=== PATIENT | female | born 1985 | race Caucasian/White ===

== ENCOUNTER 2018-01-26 06:50 | Inpatient (IN) | payer BC, MEDICAID ==
[2018-01-26] MEDS ORDERED: Misoprostol 50 MCG (1/2 of 100 MCG) Tab VAG ONE (07:20)
[2018-01-26] MEDS ORDERED: Misoprostol 50 MCG (1/2 of 100 MCG) Tab ONE (07:29)
[2018-01-26] MEDS ORDERED: Acetaminophen 325 MG Tab PO PRN (07:35)
[2018-01-26] MEDS ORDERED: Sodium Chloride 0.9% 10 ML Syringe FLUSH PRN (07:35)
[2018-01-26] MEDS ORDERED: Ondansetron 4 MG Tab.DIS PO PRN (07:35)
[2018-01-26] MEDS ORDERED: fentaNYL 100 MCG/2 ML SDV IVPUSH PRN (07:35)
[2018-01-26] MEDS ORDERED: Lactated Ringers 1,000 ML IV ONE (07:39)
[2018-01-26] MEDS ORDERED: ePHEDrine 50 MG/ML SDV IVPUSH ONE (07:39)
--- NOTE | 2018-01-26 07:48 | PCM.LDHP ---
L&D History of Present Illness - General Date of Service: 01/26/18 (induction) Admit Problem/Dx: Patient Status Order with Admit Dx/Problem 01/26/18 07:36 Patient Status [ADT] Routine Admission Diagnosis/Problem Admission Diagnosis/Problem and not yet delivered Source of Information: Patient History Limitations: Reports: No Limitations - History of Present Illness Timing/Duration: Reports: minutes: (3) Severity: Mild Improves with: Reports: None Worsens with: Reports: None - Related Data Allergies/Adverse Reactions: Allergies Allergy/AdvReac Type Severity Reaction Status Date / Time No Known Allergies Allergy Verified 01/26/18 07:28 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 : 4 Para: 3 LMP (Approximate): H&P Review of Systems - Review of Systems: Review Of Systems: See Below General: Reports: No Symptoms HEENT: Reports: No Symptoms Pulmonary: Reports: No Symptoms Cardiovascular: Reports: No Symptoms Gastrointestinal: Reports: No Symptoms Genitourinary: Reports: No Symptoms Musculoskeletal: Reports: No Symptoms Skin: Reports: No Symptoms Psychiatric: Reports: No Symptoms Neurological: Reports: No Symptoms Hematologic/Lymphatic: Reports: No Symptoms Immunologic: Reports: No Symptoms L&D Exam - Exam Exam: See Below - Vital Signs Vital Signs: Last Vital Signs Temp 96.6 F 01/26/18 07:00 Pulse 98 01/26/18 07:00 Resp 16 01/26/18 07:00 BP 121/72 01/26/18 07:00 Pulse Ox 97 01/26/18 07:00 - OB Specific Contraction Intensity: Mild Movement: Active Heart Tones: Present Heart Tones per Min: 145 Heart Rate (FHR) Variability: Moderate (6-25 bmp) Presentation: Vertex Estimated Weight: 7 pounds - Ivey Score Ivey Score Cervix Position: Anterior Ivey Score Consistency: Soft Ivey Score Effacement: 51-70% Ivey Score Dilation: 3-4 cm Ivey Score 's Station: -1 ,0 Ivey Score Total: 10 - Exam General: Alert, Oriented HEENT: PERRLA, Mucosa Moist & [place], Posterior Pharynx Clear Neck: Supple Lungs: Clear to Auscultation, Normal Respiratory Effort Cardiovascular: Regular Rate, Regular Rhythm GI/Abdominal Exam: Soft, Non-Tender Rectal Exam: Normal Exam Genitourinary: Normal external exam, Cervical discharge, Enlarged uterus Back Exam: Normal Inspection Extremities: Normal Inspection, No Pedal Edema Skin: Warm, Dry, Intact Neurological: Cranial Nerves Intact Psychiatric: Alert, Normal Affect, Normal Mood - Patient Data Lab Results Last 24 hrs: Laboratory Results - last 24 hr 01/26/18 Range/Units 07:16 WBC 9.2 (4.5-11.0) K/uL RBC 3.38 (3.30-5.50) M/uL Hgb 10.5 L (12.0-15.0) g/dL Hct 31.8 L (36.0-48.0) % MCV 94 (80-98) fL MCH 31 (27-31) pg MCHC 33 (32-36) % Plt Count 183 (150-400) K/uL Neut % (Auto) 69 H (36-66) % Lymph % (Auto) 21 L (24-44) % [place] % (Auto) 8 H (2-6) % Eos % (Auto) 2 (2-4) % Baso % (Auto) 0 (0-1) % Result Diagrams: 01/26/18 07:16 - Problem List (1) Encounter for planned induction of labor SNOMED Code(s): 761236423 ICD Code: Z34.90 - ENCNTR FOR SUPRVSN OF NORMAL , UNSP, UNSP TRIMESTER Status: Acute Current Visit: Yes (2) SNOMED Code(s): 50464872 ICD Code: Z34.90 - ENCNTR FOR SUPRVSN OF NORMAL , UNSP, UNSP TRIMESTER Status: Acute Current Visit: Yes Qualifiers: Weeks of gestation: 39 weeks Qualified Code(s): Z3A.39 - 39 weeks gestation of Problem List Initiated/Reviewed/Updated: Yes Orders Last 24hrs: Active Orders 24 hr Category Date Time Status Patient Status [ADT] Routine ADT 01/26/18 07:36 Ordered Antiembolic Devices [RC] .Routine Care 01/26/18 07:39 Ordered Communication Order [RC] ASDIRECTED Care 01/26/18 07:36 Ordered Heart Tones [RC] PER UNIT ROUTINE Care 01/26/18 07:36 Ordered Non Stress Test [RC] Click to Edit Care 01/26/18 07:36 Ordered Insert Urinary Catheter [OM.PC] ASDIRECTED Care 01/26/18 07:45 Ordered Local Anesthetic Infusion Pump [RC] ASDIRECTED Care 01/26/18 07:39 Ordered May Shower [RC] ASDIRECTED Care 01/26/18 07:35 Ordered Notify Provider Vital Signs [RC] PRN Care 01/26/18 07:35 Ordered Notify Provider [RC] PRN Care 01/26/18 07:36 Ordered OB Check [OM.PC] Click to Edit Care 01/26/18 07:18 Ordered PCEA Epidural [RC] ASDIRECTED Care 01/26/18 07:39 Ordered PCEA Epidural [RC] ASDIRECTED Care 01/26/18 07:39 Ordered Urinary Catheter Assessment [RC] ASDIRECTED Care 01/26/18 07:39 Ordered VTE/DVT Education [RC] Click to Edit Care 01/26/18 07:39 Ordered Vital Signs [RC] PER UNIT ROUTINE Care 01/26/18 07:36 Ordered Regular Diet [DIET] Diet 01/26/18 Breakfast Ordered DRUG SCREEN, URINE [URCHEM] Routine Lab 01/26/18 07:10 Ordered UA W/MICROSCOPIC [URIN] Routine Lab 01/26/18 07:09 Ordered Acetaminophen [Tylenol] Med 01/26/18 07:35 Ordered 650 mg PO Q4H PRN Lactated Ringers [Ringers, Lactated] 1,000 ml Med 01/26/18 07:39 Ordered IV .BOLUS Ondansetron [Zofran ODT] Med 01/26/18 07:35 Ordered 4 mg PO Q4H PRN Oxytocin/Normal Saline [Pitocin in NS 20 Units/1,000 ML Med 01/26/18 07:40 Ordered ] 20 unit in 1,000 ml IV ONETIME Sodium Chloride 0.9% [Saline Flush] Med 01/26/18 07:35 Ordered 10 ml FLUSH ASDIRECTED PRN ePHEDrine [ePHEDrine Sulfate] Med 01/26/18 07:39 Once 5 mg IVPUSH ONETIME ONE fentaNYL [Sublimaze] Med 01/26/18 07:35 Ordered 100 mcg IVPUSH Q1H PRN DVT/VTE Prophylaxis Reflex [OM.PC] Routine Oth 01/26/18 07:35 Ordered Epidural Catheter Management [OM.PC] Urgent Oth 01/26/18 07:39 Ordered Saline Lock Insert [OM.PC] Routine Oth 01/26/18 07:36 Ordered Resuscitation Status Routine Resus Stat 01/26/18 07:35 Ordered Medication Orders Acetaminophen (Tylenol) 650 mg PO Q4H PRN PRN Reason: Pain (Mild 1-3) and fever Ephedrine Sulfate (Ephedrine Sulfate) 5 mg IVPUSH ONETIME ONE Stop: 01/26/18 07:40 Fentanyl (Sublimaze) 100 mcg IVPUSH Q1H PRN PRN Reason: Pain (moderate 4-6) Lactated Ringer's (Ringers, Lactated) 1,000 mls @ 999 mls/hr IV .BOLUS ONE Stop: 01/26/18 08:39 Oxytocin/Sodium Chloride (Pitocin In Ns 20 Units/1,000 Ml) 20 unit in 1,000 mls @ 999 mls/hr IV ONETIME ONE; Protocol Stop: 01/26/18 08:40 Ondansetron HCl (Zofran Odt) 4 mg PO Q4H PRN PRN Reason: Nausea/Vomiting Sodium Chloride (Saline Flush) 10 ml FLUSH ASDIRECTED PRN PRN Reason: Keep Vein Open Assessment/Plan Comment:: 01/26/18 This 32 year old presents today for induction of labor. She has been marifer but has been comfortable. Has severe back pain which has gotten worse during her . LILLIE 02/01/18. Has had adequate care Labs ABO AB pos Rubella immune GBS neg HIV neg Would like an epidural for pain later today. Plan: Misoprostol for induction 50 MCG palced vaginally at 0730 CE 3/75/0 vertex Cat one strip Plan for vaginal delivery
--- NOTE | 2018-01-26 12:53 | PCM.PNLD ---
Labor Progress Note - VS & Meds Vital Signs: Last Vital Signs Temp 97.5 F 01/26/18 11:55 Pulse 84 01/26/18 11:55 Resp 16 01/26/18 08:30 BP 107/55 L 01/26/18 11:55 Pulse Ox 97 01/26/18 11:55 Active Medications: Current Medications Acetaminophen (Tylenol) 650 mg PO Q4H PRN PRN Reason: Pain (Mild 1-3) and fever Fentanyl (Sublimaze) 100 mcg IVPUSH Q1H PRN PRN Reason: Pain (moderate 4-6) Oxytocin/Sodium Chloride (Pitocin In Ns 20 Units/1,000 Ml) 20 unit in 1,000 mls @ 999 mls/hr IV ASDIRECTED TREY; Protocol Ondansetron HCl (Zofran Odt) 4 mg PO Q4H PRN PRN Reason: Nausea/Vomiting Sodium Chloride (Saline Flush) 10 ml FLUSH ASDIRECTED PRN PRN Reason: Keep Vein Open Discontinued Medications Ephedrine Sulfate (Ephedrine Sulfate) 5 mg IVPUSH ONETIME ONE Stop: 01/26/18 07:40 Lactated Ringer's (Ringers, Lactated) 1,000 mls @ 999 mls/hr IV .BOLUS ONE Stop: 01/26/18 08:39 Misoprostol (Cytotec) 50 mcg VAG ONETIME ONE Stop: 01/26/18 07:21 Last Admin: 01/26/18 07:31 Dose: 50 mcg Misoprostol (Cytotec) Confirm Administered Dose 50 mcg .ROUTE .STK-MED ONE Stop: 01/26/18 07:30 Last Admin: 01/26/18 07:59 Dose: Not Given - Uterine Contractions Uterine Monitoring Mode: External Maish Vaya Contraction Frequency (min): 2-2.5 Contraction Duration (sec): 50-130 Contraction Intensity: Mild Uterine Resting Tone: Soft - Monitoring Monitor Mode: Doppler/Auscultation Heart Rate (FHR) Baseline: 140 Heart Rate (FHR) Variability: Moderate (6-25 bmp) Accelerations: Present, 15x15 Decelerations: None Strip Review: Category I - Vaginal Exam Dilation (cm): 4 Effacement (Percent): 80 Station: 0 Cervical Position: Anterior Sterile Vaginal Exam Performed By: [facility] Vaginal Exam Comment: AROM clear - Labor Progress (Free Text) Labor Progress: 01/26/18 Nice change since this morning, marifer regularly, AROM, large amount clear fluid CE 4-/0 Cat one strip Cristal would like an epidural for pain control Planning vaginal delivery
[2018-01-26] MEDS ORDERED: ePHEDrine 50 MG/ML SDV ONE (13:10)
[2018-01-26] MEDS ORDERED: Naloxone 0.4 MG/ML SDV IVPUSH PRN (13:56)
[2018-01-26] MEDS ORDERED: ePHEDrine 50 MG/ML SDV IV PRN (13:56)
[2018-01-26] MEDS ORDERED: Ropivacaine 100 ML EPIDUR SCH (13:56)
[2018-01-26] MEDS ORDERED: Ropivacaine 100 ML ONE (13:57)
[2018-01-26] MEDS ORDERED: Lanolin 100% Cream 40 GM Tube TOP PRN (15:01)
[2018-01-26] MEDS ORDERED: Ibuprofen 200 MG Tab, 24 Tab Bulk Bottle PO PRN (15:01)
[2018-01-26] MEDS ORDERED: Acetaminophen 325 MG Tab, 50 Tab Bulk Bottle PO PRN (15:01)
--- NOTE | 2018-01-26 15:11 | PCM.DEL ---
L & D Note - General Info Date of Service: 01/26/18 (Childbirth) Mother's Due Date: 01/26/18 - Delivery Note Labor: Spontaneous Cervical Ripening Method: Misoprostil Delivery Outcome: Livebirth Delivery Method: Spontaneous Vaginal Delivery-Single Infant Delivery Mode: Spontaneous Presentation: Vertex Nuchal Cord: None Anesthesia Type: Epidural Episiotomy Type: None Laceration: None Placenta: Intact, Expressed Cord: 3 Vessels Estimated Blood Loss: 50 Resuscitation Needed: No [place]: Stimulated, [place] Used Provider: Loreto [facility] Score 1 min: 9 Score 5 min: 9 Second Stage Interventions: Reports: Encouragement Given, Pushing Effectively Delivery Comments (Free Text/Narrative):: This 32 year old who is 39 1/7 weeks delivered via at 1441 at 1441 a viable male infant over an intact perineum in GRADY position. There was a short cord so baby was delivered into my arms the cord was double clamped and cut and placed on mother's abdomen. He cried spontaneously. He was dried and stimulated. Apgars 9, 9. Three vessel cord. Baby was placed skin to skin with mother. The placenta was expressed with massage and was intact reed. Active management of the third stage was used. EBL 50cc No lacerations of the cervix, vagina, rectum or perineum were found. Mother and baby to post and nusery in stable condition. weight 7-14 Induction Criteria - Ivey Score Ivey Score Dilation: 3-4 cm Ivey Score Effacement: 60-70% Ivey Score 's Station: -1 ,0 Ivey Score Consistency: Soft Ivey Score Cervix Position: Anterior Ivey Score Total: 10 Ivey Score Presenting Part: Reports: Cephalic - Induction Gestational Age >/= 39 wks: Yes Estimated Pelvis: Reports: Adequate Reassuring Monitoring Strip: Yes Absence of Tachy Systole: Yes - General Info Date of Service: 01/26/18 Admission Dx/Problem (Free Text): Patient Status Order with Admit Dx/Problem 01/26/18 07:36 Patient Status [ADT] Routine Admission Diagnosis/Problem Admission Diagnosis/Problem and not yet delivered Functional Status: Reports: Pain Controlled - Review of Systems General: Reports: No Symptoms HEENT: Reports: No Symptoms Pulmonary: Reports: No Symptoms Cardiovascular: Reports: No Symptoms Gastrointestinal: Reports: No Symptoms Genitourinary: Reports: No Symptoms Musculoskeletal: Reports: No Symptoms Skin: Reports: No Symptoms Neurological: Reports: No Symptoms Psychiatric: Reports: No Symptoms - Patient Data Vitals - Most Recent: Last Vital Signs Temp 97.5 F 01/26/18 11:55 Pulse 91 01/26/18 14:00 Resp 16 01/26/18 08:30 BP 118/72 01/26/18 14:00 Pulse Ox 98 01/26/18 14:00 Weight - Most Recent: 190 lb 0.016 oz Lab Results Last 24 Hours: Laboratory Results - last 24 hr 01/26/18 01/26/18 01/26/18 Range/Units 07:09 07:10 07:16 WBC 9.2 (4.5-11.0) K/uL RBC 3.38 (3.30-5.50) M/uL Hgb 10.5 L (12.0-15.0) g/dL Hct 31.8 L (36.0-48.0) % MCV 94 (80-98) fL MCH 31 (27-31) pg MCHC 33 (32-36) % Plt Count 183 (150-400) K/uL Neut % (Auto) 69 H (36-66) % Lymph % (Auto) 21 L (24-44) % [place] % (Auto) 8 H (2-6) % Eos % (Auto) 2 (2-4) % Baso % (Auto) 0 (0-1) % Urine Color Yellow Urine Appearance Cloudy Urine pH 7.0 (4.5-8.0) Ur Specific [place] 1.015 (1.008-1.030) Urine Protein Negative (NEGATIVE) mg/dL Urine Glucose (UA) Normal (NEGATIVE) mg/dL Urine Ketones Negative (NEGATIVE) mg/dL Urine Occult Blood Moderate (NEGATIVE) Urine Nitrite Negative (NEGATIVE) Urine Bilirubin Negative (NEGATIVE) Urine Urobilinogen Normal (NORMAL) mg/dL Ur Leukocyte Esterase Large (NEGATIVE) Urine RBC 0-5 (0-5) Urine WBC 10-20 H (0-5) Ur Epithelial Cells Many Amorphous Sediment Moderate Urine Bacteria Many Urine Mucus Moderate Urine Other See note Urine Opiates Screen Negative (NEGATIVE) Ur Oxycodone Screen Negative (NEGATIVE) Urine Methadone Screen Negative (NEGATIVE) Ur Propoxyphene Screen Negative (NEGATIVE) Ur Barbiturates Screen Negative (NEGATIVE) Ur Tricyclics Screen Negative (NEGATIVE) Ur Phencyclidine Scrn Negative (NEGATIVE) Ur Amphetamine Screen Negative (NEGATIVE) U Methamphetamines Scrn Negative (NEGATIVE) Urine MDMA Screen Negative (NEGATIVE) U Benzodiazepines Scrn Negative (NEGATIVE) U Cocaine Metab Screen Negative (NEGATIVE) U Marijuana (THC) Screen Negative (NEGATIVE) Med Orders - Current: Current Medications Acetaminophen (Tylenol) 650 mg PO Q4H PRN PRN Reason: Pain (Mild 1-3) and fever Ephedrine Sulfate (Ephedrine Sulfate) 5 - 10 mg IV ASDIRECTED PRN PRN Reason: Systolic BP less than 100 Fentanyl (Sublimaze) 100 mcg IVPUSH Q1H PRN PRN Reason: Pain (moderate 4-6) Oxytocin/Sodium Chloride (Pitocin In Ns 20 Units/1,000 Ml) 20 unit in 1,000 mls @ 999 mls/hr IV ASDIRECTED TREY; Protocol Ropivacaine (Naropin 0.2%) 100 mls @ 0 mls/hr EPIDUR ASDIRECTED TREY; Protocol Naloxone HCl (Narcan) 0.1 mg IVPUSH Q5M PRN PRN Reason: IF RESP RATE LESS THAN 6 Ondansetron HCl (Zofran Odt) 4 mg PO Q4H PRN PRN Reason: Nausea/Vomiting Sodium Chloride (Saline Flush) 10 ml FLUSH ASDIRECTED PRN PRN Reason: Keep Vein Open Discontinued Medications Ephedrine Sulfate (Ephedrine Sulfate) 5 mg IVPUSH ONETIME ONE Stop: 01/26/18 07:40 Ephedrine Sulfate (Ephedrine Sulfate) Confirm Administered Dose 50 mg .ROUTE .STK-MED ONE Stop: 01/26/18 13:11 Lactated Ringer's (Ringers, Lactated) 1,000 mls @ 999 mls/hr IV .BOLUS ONE Stop: 01/26/18 08:39 Last Admin: 01/26/18 12:56 Dose: 999 mls/hr Ropivacaine (Naropin 0.2%) Confirm Administered Dose 100 mls @ as directed .ROUTE .STK-MED ONE Stop: 01/26/18 13:58 Misoprostol (Cytotec) 50 mcg VAG ONETIME ONE Stop: 01/26/18 07:21 Last Admin: 01/26/18 07:31 Dose: 50 mcg Misoprostol (Cytotec) Confirm Administered Dose 50 mcg .ROUTE .STK-MED ONE Stop: 01/26/18 07:30 Last Admin: 01/26/18 07:59 Dose: Not Given - Exam General: Alert, Oriented HEENT: Pupils Equal, Pupils Reactive, Mucous Membr. Moist/[place] Neck: Supple Lungs: Clear to Auscultation, Normal Respiratory Effort Cardiovascular: Regular Rate, Regular Rhythm GI/Abdominal Exam: Soft, Non-Tender (Female) Exam: Cervical Dilatation, Enlarged Uterus, Vaginal Bleeding, Other (right labial varicosities) Back Exam: Normal Inspection, Full Range of Motion Extremities: Normal Inspection, No Pedal Edema, Normal Capillary Refill Skin: Warm, Dry Neurological: No New Focal Deficit Psy/Mental Status: Alert, Normal Affect, Normal Mood - Problem List & Annotations (1) Encounter for planned induction of labor SNOMED Code(s): 279732319 Code(s): Z34.90 - ENCNTR FOR SUPRVSN OF NORMAL , UNSP, UNSP TRIMESTER Status: Acute Current Visit: Yes (2) SNOMED Code(s): 10306215 Code(s): Z34.90 - ENCNTR FOR SUPRVSN OF NORMAL , UNSP, UNSP TRIMESTER Status: Acute Current Visit: Yes Qualifiers: Weeks of gestation: 39 weeks Qualified Code(s): Z3A.39 - 39 weeks gestation of (3) Normal labor and delivery SNOMED Code(s): 11062681, 059280031 Code(s): O80 - ENCOUNTER FOR FULL-TERM UNCOMPLICATED DELIVERY Status: Acute Current Visit: Yes - Problem List Review Problem List Initiated/Reviewed/Updated: Yes - My Orders Last 24 Hours: My Active Orders 01/26/18 07:18 OB Check [OM.PC] Click to Edit 01/26/18 07:35 May Shower [RC] ASDIRECTED Notify Provider Vital Signs [RC] PRN Acetaminophen [Tylenol] 650 mg PO Q4H PRN Ondansetron [Zofran ODT] 4 mg PO Q4H PRN Sodium Chloride 0.9% [Saline Flush] 10 ml FLUSH ASDIRECTED PRN fentaNYL [Sublimaze] 100 mcg IVPUSH Q1H PRN DVT/VTE Prophylaxis Reflex [OM.PC] Routine Resuscitation Status Routine 01/26/18 07:36 Patient Status [ADT] Routine Communication Order [RC] ASDIRECTED Notify Provider [RC] PRN Vital Signs [RC] PER UNIT ROUTINE Saline Lock Insert [OM.PC] Routine 01/26/18 07:39 Antiembolic Devices [RC] .Routine Local Anesthetic Infusion Pump [RC] ASDIRECTED PCEA Epidural [RC] ASDIRECTED Urinary Catheter Assessment [RC] ASDIRECTED VTE/DVT Education [RC] Click to Edit Epidural Catheter Management [OM.PC] Urgent 01/26/18 07:40 Oxytocin/Normal Saline [Pitocin in NS 20 Units/1,000 ML] 20 unit in 1,000 ml IV ASDIRECTED 01/26/18 07:45 Insert Urinary Catheter [OM.PC] ASDIRECTED 01/26/18 15:01 Patient Status [ADT] Routine Urinary Catheter Removal [RC] Per Unit Routine Vital Signs [RC] PFP Acetaminophen [Tylenol Bulk Bottle] 325 mg PO Q4H PRN Ibuprofen [Motrin Bulk Bottle] 600 mg PO Q6H PRN Lanolin [Lansinoh HPA] 1 gm TOP ASDIRECTED PRN Assess Uterine Involution [WOMSER] Per Unit Routine 01/26/18 15:02 Ice Therapy [OM.PC] Per Unit Routine Perineal Care [OM.PC] Per Unit Routine Peripheral IV Discontinue [OM.PC] Routine Sitz Bath [OM.PC] Per Unit Routine 01/26/18 Breakfast Regular Diet [DIET] 01/27/18 05:11 CBC WITH AUTO DIFF [HEME] AM - Assessment Assessment:: 01/26/18 32 yr old without complications Breast feeding , male - Plan Plan:: 01/26/18 This 32 year old presents today for induction of labor. She has been marifer but has been comfortable. Has severe back pain which has gotten worse during her . LILLIE 02/01/18. Has had adequate care Labs ABO AB pos Rubella immune GBS neg HIV neg Would like an epidural for pain later today. Plan: Misoprostol for induction 50 MCG palced vaginally at 0730 CE 3/75/0 vertex Cat one strip Plan for vaginal delivery 01/26/18 Routine cares support CBC in am 24-48 hour stay
--- NOTE | 2018-01-27 00:37 | ANES ---
DATE OF SERVICE: 01/26/2018 INDICATIONS: Today, she is in Obstetrics Unit in a prolonged stage II labor. She is a 32- year-old female patient of Maddie V[facility]. I was consulted for labor epidural. Upon arrival, I discussed with the patient her history, reviewed her lab work. I found no contraindication to labor epidural, as she was well aware of the risks and benefits of the procedure and okay to proceed and consent was received. DESCRIPTION OF PROCEDURE: I had her seated at the edge of the bed. Betadine prep x3 to lumbar region. Sterile drape was placed. A 1% lidocaine skin wheal as well as deep at what I believe to be the L3-L4 region which is between two sides of the tattoo, sterile drape was placed, 1% lidocaine skin wheal as well as deep. A 17-gauge Touhy needle was placed to loss of resistance, negative CSF, negative heme, negative paresthesia. I injected a mixture of 12 mL of 0.2% ropivacaine after the catheter was inserted to 13 cm. The catheter was then secured negative sequelae. A test dose was given prior to the 12 mL, 3 mL of 1.5% lidocaine with 1:200,000 epinephrine, and then the 12 mL of 0.2% ropivacaine was given. The catheter was then secured to her back and connected to an IV infusion pump of that same 12 mL of 0.2% ropivacaine in an hour. She tolerated the procedure quite well. I placed her in a supine position. I discussed with her the procedure. She said she tolerated quite well. Please refer to nursing notes for vital signs and neuro status, which were unchanged. I reported off to the nurse in the room. Rl Naqvi CRNA /[id number]
--- NOTE | 2018-01-27 11:09 | PCM.PNPP ---
- General Info Date of Service: 01/27/18 Admission Dx/Problem (Free Text): Patient Status Order with Admit Dx/Problem 01/26/18 07:36 Patient Status [ADT] Routine Admission Diagnosis/Problem Admission Diagnosis/Problem and not yet delivered Functional Status: Reports: Pain Controlled - Review of Systems General: Reports: No Symptoms HEENT: Reports: No Symptoms Pulmonary: Reports: No Symptoms Cardiovascular: Reports: No Symptoms Gastrointestinal: Reports: No Symptoms Genitourinary: Reports: No Symptoms Musculoskeletal: Reports: No Symptoms Skin: Reports: No Symptoms Neurological: Reports: No Symptoms Psychiatric: Reports: No Symptoms - Patient Data Vital Signs - Most Recent: Last Vital Signs Temp 97.1 F 01/27/18 07:00 Pulse 75 01/27/18 07:00 Resp 16 01/27/18 07:00 BP 108/60 01/27/18 07:00 Pulse Ox 98 01/27/18 07:00 Weight - Most Recent: 190 lb 0.016 oz I&O - Last 24 Hours: Intake & Output 01/26/18 01/27/18 01/27/18 22:59 06:59 14:59 Intake Total 480 Balance 480 Lab Results - Last 24 Hours: Laboratory Results - last 24 hr 01/27/18 Range/Units 05:26 WBC 13.0 H (4.5-11.0) K/uL RBC 3.32 (3.30-5.50) M/uL Hgb 10.0 L (12.0-15.0) g/dL Hct 31.5 L (36.0-48.0) % MCV 95 (80-98) fL MCH 30 (27-31) pg MCHC 32 (32-36) % Plt Count 169 (150-400) K/uL Neut % (Auto) 69 H (36-66) % Lymph % (Auto) 22 L (24-44) % [place] % (Auto) 7 H (2-6) % Eos % (Auto) 2 (2-4) % Baso % (Auto) 0 (0-1) % Med Orders - Current: Current Medications Acetaminophen (Tylenol Bulk Bottle) 325 - 650 mg PO Q4H PRN PRN Reason: Pain Last Admin: 01/26/18 16:08 Dose: 650 mg Emollient Ointment (Lansinoh Hpa) 0 gm TOP ASDIRECTED PRN PRN Reason: Sore Nipples Last Admin: 01/26/18 16:07 Dose: 1 applic Ibuprofen (Motrin Bulk Bottle) 600 mg PO Q6H PRN PRN Reason: Pain Last Admin: 01/26/18 16:08 Dose: 600 mg Ondansetron HCl (Zofran Odt) 4 mg PO Q4H PRN PRN Reason: Nausea/Vomiting Sodium Chloride (Saline Flush) 10 ml FLUSH ASDIRECTED PRN PRN Reason: Keep Vein Open Discontinued Medications Acetaminophen (Tylenol) 650 mg PO Q4H PRN PRN Reason: Pain (Mild 1-3) and fever Ephedrine Sulfate (Ephedrine Sulfate) 5 mg IVPUSH ONETIME ONE Stop: 01/26/18 07:40 Last Admin: 01/26/18 16:04 Dose: Not Given Ephedrine Sulfate (Ephedrine Sulfate) Confirm Administered Dose 50 mg .ROUTE .STK-MED ONE Stop: 01/26/18 13:11 Last Admin: 01/26/18 16:04 Dose: Not Given Ephedrine Sulfate (Ephedrine Sulfate) 5 - 10 mg IV ASDIRECTED PRN PRN Reason: Systolic BP less than 100 Fentanyl (Sublimaze) 100 mcg IVPUSH Q1H PRN PRN Reason: Pain (moderate 4-6) Lactated Ringer's (Ringers, Lactated) 1,000 mls @ 999 mls/hr IV .BOLUS ONE Stop: 01/26/18 08:39 Last Admin: 01/26/18 12:56 Dose: 999 mls/hr Oxytocin/Sodium Chloride (Pitocin In Ns 20 Units/1,000 Ml) 20 unit in 1,000 mls @ 999 mls/hr IV ASDIRECTED TREY; Protocol Last Titration: 01/26/18 15:15 Dose: 125 mls/hr Ropivacaine (Naropin 0.2%) 100 mls @ 0 mls/hr EPIDUR ASDIRECTED TREY; Protocol Ropivacaine (Naropin 0.2%) Confirm Administered Dose 100 mls @ as directed .ROUTE .STK-MED ONE Stop: 01/26/18 13:58 Misoprostol (Cytotec) 50 mcg VAG ONETIME ONE Stop: 01/26/18 07:21 Last Admin: 01/26/18 07:31 Dose: 50 mcg Misoprostol (Cytotec) Confirm Administered Dose 50 mcg .ROUTE .STK-MED ONE Stop: 01/26/18 07:30 Last Admin: 01/26/18 07:59 Dose: Not Given Naloxone HCl (Narcan) 0.1 mg IVPUSH Q5M PRN PRN Reason: IF RESP RATE LESS THAN 6 - Infant Interaction Disposition, : in Room with Family Interaction: Holding Infant Feeding: Breastfed ; Nursed Well, Encouraged to Breastfeed Support Person: - Recovery Exam Fundal Tone: Firms with Massage Fundal Level: At Umbilicus Lochia Amount: Moderate Lochia Color: Rubra/Red Perineum Description: Edematous Episiotomy/Laceration: None Bladder Status: Voiding Urinary Elimination: Voided - Exam General: Alert, Oriented HEENT: Pupils Equal Neck: Supple Lungs: Clear to Auscultation, Normal Respiratory Effort Cardiovascular: Regular Rate, Regular Rhythm GI/Abdominal Exam: Normal Bowel Sounds, Soft, Non-Tender, No Organomegaly, No Distention, No Abnormal Bruit, No Mass, Pelvis Stable Extremities: Normal Inspection, Normal Range of Motion, Non-Tender, No Pedal Edema, Normal Capillary Refill Skin: Warm, Dry, Intact Wound/Incisions: Healing Well Neurological: No New Focal Deficit Psy/Mental Status: Alert, Normal Affect, Normal Mood - Problem List & Annotations (1) Encounter for planned induction of labor SNOMED Code(s): 384214863 Code(s): Z34.90 - ENCNTR FOR SUPRVSN OF NORMAL , UNSP, UNSP TRIMESTER Status: Acute Current Visit: Yes (2) SNOMED Code(s): 29612845 Code(s): Z34.90 - ENCNTR FOR SUPRVSN OF NORMAL , UNSP, UNSP TRIMESTER Status: Acute Current Visit: Yes Qualifiers: Weeks of gestation: 39 weeks Qualified Code(s): Z3A.39 - 39 weeks gestation of (3) Normal labor and delivery SNOMED Code(s): 91816816, 774246022 Code(s): O80 - ENCOUNTER FOR FULL-TERM UNCOMPLICATED DELIVERY Status: Acute Current Visit: Yes - Problem List Review Problem List Initiated/Reviewed/Updated: Yes - My Orders Last 24 Hours: My Active Orders 01/26/18 15:01 Patient Status [ADT] Routine Acetaminophen [Tylenol Bulk Bottle] 325 - 650 mg PO Q4H PRN Ibuprofen [Motrin Bulk Bottle] 600 mg PO Q6H PRN Lanolin [Lansinoh HPA] 0 gm TOP ASDIRECTED PRN Assess Uterine Involution [WOMSER] Per Unit Routine 01/26/18 15:02 Ice Therapy [OM.PC] Per Unit Routine Perineal Care [OM.PC] Per Unit Routine Peripheral IV Discontinue [OM.PC] Routine Sitz Bath [OM.PC] Per Unit Routine - Assessment Assessment:: 01/26/18 32 yr old without complications Breast feeding , male 01/27/18 Happy, without problem Flow light and ramping is mild HGB 10 voiding - Plan Plan:: 01/26/18 This 32 year old presents today for induction of labor. She has been marifer but has been comfortable. Has severe back pain which has gotten worse during her . LILLIE 02/01/18. Has had adequate care Labs ABO AB pos Rubella immune GBS neg HIV neg Would like an epidural for pain later today. Plan: Misoprostol for induction 50 MCG palced vaginally at 0730 CE /0 vertex Cat one strip Plan for vaginal delivery 01/26/18 Routine cares support CBC in am 24-48 hour stay 01/27/18 Continue routine cares Home tomorrow Support
--- NOTE | 2018-01-28 10:10 | PCM.PNPP ---
- General Info Date of Service: 01/28/18 (PPD 2 D/C) Admission Dx/Problem (Free Text): Patient Status Order with Admit Dx/Problem 01/26/18 07:36 Patient Status [ADT] Routine Admission Diagnosis/Problem Admission Diagnosis/Problem and not yet delivered Functional Status: Reports: Pain Controlled - Review of Systems General: Reports: No Symptoms HEENT: Reports: No Symptoms Pulmonary: Reports: No Symptoms Cardiovascular: Reports: No Symptoms Gastrointestinal: Reports: No Symptoms Genitourinary: Reports: No Symptoms Musculoskeletal: Reports: No Symptoms Skin: Reports: No Symptoms Neurological: Reports: No Symptoms Psychiatric: Reports: No Symptoms - Patient Data Vital Signs - Most Recent: Last Vital Signs Temp 97.6 F 01/28/18 07:45 Pulse 86 01/28/18 07:45 Resp 16 01/28/18 07:45 BP 111/61 01/28/18 07:45 Pulse Ox 99 01/28/18 07:45 Weight - Most Recent: 190 lb 0.016 oz I&O - Last 24 Hours: Intake & Output 01/27/18 01/28/18 01/28/18 22:59 06:59 14:59 Intake Total 1000 800 Balance 1000 800 Med Orders - Current: Current Medications Acetaminophen (Tylenol Bulk Bottle) 325 - 650 mg PO Q4H PRN PRN Reason: Pain Last Admin: 01/26/18 16:08 Dose: 650 mg Emollient Ointment (Lansinoh Hpa) 0 gm TOP ASDIRECTED PRN PRN Reason: Sore Nipples Last Admin: 01/26/18 16:07 Dose: 1 applic Ibuprofen (Motrin Bulk Bottle) 600 mg PO Q6H PRN PRN Reason: Pain Last Admin: 01/26/18 16:08 Dose: 600 mg Ondansetron HCl (Zofran Odt) 4 mg PO Q4H PRN PRN Reason: Nausea/Vomiting Sodium Chloride (Saline Flush) 10 ml FLUSH ASDIRECTED PRN PRN Reason: Keep Vein Open Discontinued Medications Acetaminophen (Tylenol) 650 mg PO Q4H PRN PRN Reason: Pain (Mild 1-3) and fever Ephedrine Sulfate (Ephedrine Sulfate) 5 mg IVPUSH ONETIME ONE Stop: 01/26/18 07:40 Last Admin: 01/26/18 16:04 Dose: Not Given Ephedrine Sulfate (Ephedrine Sulfate) Confirm Administered Dose 50 mg .ROUTE .STK-MED ONE Stop: 01/26/18 13:11 Last Admin: 01/26/18 16:04 Dose: Not Given Ephedrine Sulfate (Ephedrine Sulfate) 5 - 10 mg IV ASDIRECTED PRN PRN Reason: Systolic BP less than 100 Fentanyl (Sublimaze) 100 mcg IVPUSH Q1H PRN PRN Reason: Pain (moderate 4-6) Lactated Ringer's (Ringers, Lactated) 1,000 mls @ 999 mls/hr IV .BOLUS ONE Stop: 01/26/18 08:39 Last Admin: 01/26/18 12:56 Dose: 999 mls/hr Oxytocin/Sodium Chloride (Pitocin In Ns 20 Units/1,000 Ml) 20 unit in 1,000 mls @ 999 mls/hr IV ASDIRECTED TREY; Protocol Last Titration: 01/26/18 15:15 Dose: 125 mls/hr Ropivacaine (Naropin 0.2%) 100 mls @ 0 mls/hr EPIDUR ASDIRECTED TREY; Protocol Ropivacaine (Naropin 0.2%) Confirm Administered Dose 100 mls @ as directed .ROUTE .STK-MED ONE Stop: 01/26/18 13:58 Misoprostol (Cytotec) 50 mcg VAG ONETIME ONE Stop: 01/26/18 07:21 Last Admin: 01/26/18 07:31 Dose: 50 mcg Misoprostol (Cytotec) Confirm Administered Dose 50 mcg .ROUTE .STK-MED ONE Stop: 01/26/18 07:30 Last Admin: 01/26/18 07:59 Dose: Not Given Naloxone HCl (Narcan) 0.1 mg IVPUSH Q5M PRN PRN Reason: IF RESP RATE LESS THAN 6 - Interaction Disposition, : [place] in Room with Family Infant Interaction: Holding Feeding: Bottle Fed , Breastfed Infant; Nursed Well, Encouraged to Breastfeed Support Person: - Recovery Exam Fundal Tone: Firm Fundal Level: 2 Fingerbreadths Below Umbilicus Fundal Placement: Midline Lochia Amount: Small Lochia Color: Rubra/Red Perineum Description: Intact, Minimal Bruising/Swelling Episiotomy/Laceration: None Bladder Status: Voiding Urinary Elimination: Voided - Exam General: Alert, Oriented HEENT: Pupils Equal Neck: Supple Lungs: Clear to Auscultation, Normal Respiratory Effort Cardiovascular: Regular Rate, Regular Rhythm GI/Abdominal Exam: Normal Bowel Sounds, Soft, Non-Tender, No Organomegaly, No Distention, No Abnormal Bruit, No Mass, Pelvis Stable Extremities: Normal Inspection, Normal Range of Motion, Non-Tender, No Pedal Edema, Normal Capillary Refill Skin: Warm, Dry, Intact Wound/Incisions: Healing Well Neurological: No New Focal Deficit Psy/Mental Status: Alert, Normal Affect, Normal Mood - Problem List & Annotations (1) Encounter for planned induction of labor SNOMED Code(s): 295804839 Code(s): Z34.90 - ENCNTR FOR SUPRVSN OF NORMAL , UNSP, UNSP TRIMESTER Status: Acute Current Visit: Yes (2) SNOMED Code(s): 53635004 Code(s): Z34.90 - ENCNTR FOR SUPRVSN OF NORMAL , UNSP, UNSP TRIMESTER Status: Acute Current Visit: Yes Qualifiers: Weeks of gestation: 39 weeks Qualified Code(s): Z3A.39 - 39 weeks gestation of (3) Normal labor and delivery SNOMED Code(s): 07603952, 579415303 Code(s): O80 - ENCOUNTER FOR FULL-TERM UNCOMPLICATED DELIVERY Status: Acute Current Visit: Yes - Problem List Review Problem List Initiated/Reviewed/Updated: Yes - Assessment Assessment:: 01/26/18 32 yr old without complications Breast feeding , male 01/27/18 Happy, without problem Flow light and ramping is mild HGB 10 voiding 01/28/19 Doing well ready for discharge - Plan Plan:: 01/26/18 This 32 year old presents today for induction of labor. She has been marifer but has been comfortable. Has severe back pain which has gotten worse during her . LILLIE 02/01/18. Has had adequate care Labs ABO AB pos Rubella immune GBS neg HIV neg Would like an epidural for pain later today. Plan: Misoprostol for induction 50 MCG palced vaginally at 0730 CE /0 vertex Cat one strip Plan for vaginal delivery 01/26/18 Routine cares support CBC in am 24-48 hour stay 01/27/18 Continue routine cares Home tomorrow Support 01/28/18 Home today See me in 6 weeks
== END 2018-01-28 11:00 | disposition home or self-care (01) | DRG 560 ==
LOC: JP.OB 06:50 → OBSVTOIN 14:41 → JP.OB 14:41 → JP.MS 19:00
PROVIDERS: ADMIT Nurse Practitioner Family; ATTEND Nurse Practitioner Family
PROC: 10E0XZZ Delivery of Products of Conception, External Approach (ICD-10-PCS; principal; 2018-01-26)
PROC: 10907ZC Drainage of Amniotic Fluid, Therapeutic from Products of Conception, Via Natural or Artificial Opening (ICD-10-PCS; 2018-01-26)
PROC: 3E0P7VZ Introduction of Hormone into Female Reproductive, Via Natural or Artificial Opening (ICD-10-PCS; 2018-01-26)
PROC: 00HU33Z Insertion of Infusion Device into Spinal Canal, Percutaneous Approach (ICD-10-PCS; 2018-01-26)
DX: O69.3XX0 Labor and delivery complicated by short cord, not applicable or unspecified (principal); Z3A.39 39 weeks gestation of pregnancy; Z37.0 Single live birth
CPT/HCPCS: 36415; 51702; 59409; 80305-QW; 81001; 85025; 99211; A9270-GY; J2590; J2795; J7120